=== PATIENT | female | born 1965 | race Caucasian/White ===

== ENCOUNTER 2021-01-20 20:20 | Emergency (ER) | payer OTHER ==
[2021-01-20 21:03] LABS: BASOPHIL 0.3 % (0-2); EOSINOPHIL 1.8 % (0-5); HCT 39.4 % (37.0-47.0); HGB 12.2 g/dl (12.5-16.0); LYMPHOCYTE 32.2 % (15-48); MCH 26.8 pg (25.0-31.0); MCV 86.6 fL (78.0-100.0); MONOCYTE 7.7 % (0-12); MPV 9.4 fL (6.0-9.5); NEUTROPHIL 57.7 % (41-80); NRBC 0; PLT 402 K/uL (150-400); RBC 4.55 M/uL (4.20-5.40); RDW 14.5 % (11.5-14.0); WBC 7.1 K/uL (4.0-10.5)
[2021-01-20 21:06] LABS: INR 0.93 (0.9-1.2); PROTHROMBIN TIME 11.9 SECONDS (11.8-13.4); PTT 31.8 SECONDS (24.4-34.7)
[2021-01-20 21:07] LABS: D-DIMER 0.98 ug/mLFEU (0.00-0.41)
[2021-01-20 21:24] LABS: BILIRUBIN - TOTAL 0.2 mg/dL (0.2-1.0); BUN/CREAT RATIO (CALC) 20.7 RATIO; CREATININE 0.82 mg/dL (0.51-0.95); GLOBULIN (CALCULATION) 3.3 g/dL; POTASSIUM 3.8 mmol/L (3.5-5.1); TOTAL PROTEIN 7.3 g/dL (6.4-8.2)
[2021-01-20 21:26] LABS: PRO-BNP 87 pg/mL (<125)
[2021-01-20] MEDS ORDERED: ATIVAN1 M1 PO (23:23)
== END 2021-01-20 23:55 | disposition home or self-care (01) ==
LOC: FER 20:20
PROVIDERS: Emergency Medicine
DX: F41.9 Anxiety disorder, unspecified (principal); R07.89 Other chest pain
CPT/HCPCS: 36415; 36600; 71045; 71275; 80053; 82803; 83735; 83880; 84443; 84484; 85025; 85379; 85610; 85730; 93005; J2060; Q9967

== ENCOUNTER → 2021-09-24 | Day surgery (SDC) | payer OTHER ==
[~2021-09-24] VITALS: Ht 154.9 cm; Wt 77.1 kg
[~2021-09-24] MED LIST: ATIVAN1 M1 PO; CARAFATE1 GM PO; COZAAR100 MG PO; HCTZ25 MG PO; OS-CAL500 MG PO; PRAVACHOL20 MG PO; PROBIOTIC1 EAC1 PO; PROTONIX 40MG T40 MG PO; PROZAC20 MG PO; STOOL SOFTENER100 MG PO; TYLENOL ARTHRI650 MG PO; VITAMIN D3125 MC1 PO; XYZAL5 MG PO
== END | disposition home or self-care (01) ==
LOC: FAS 06:03
DX: K29.60 Other gastritis without bleeding (principal); K31.7 Polyp of stomach and duodenum; K31.9 Disease of stomach and duodenum, unspecified; I10 Essential (primary) hypertension; E78.00 Pure hypercholesterolemia, unspecified; K21.9 Gastro-esophageal reflux disease without esophagitis; M19.90 Unspecified osteoarthritis, unspecified site; F41.9 Anxiety disorder, unspecified; F32.A Depression, unspecified; E66.9 Obesity, unspecified; Z68.32 Body mass index [BMI] 32.0-32.9, adult; Z79.899 Other long term (current) drug therapy; Z72.89 Other problems related to lifestyle; Z90.49 Acquired absence of other specified parts of digestive tract
CPT/HCPCS: J2250; J2704; J7120

== ENCOUNTER 2022-02-09 22:02 | Emergency (ER) | payer OTHER ==
[2022-02-09 23:51] LABS: BASOPHIL 0.5 % (0-2); HCT 36.3 % (37.0-47.0); HGB 11.5 g/dl (12.5-16.0); LYMPHOCYTE 40.1 % (15-48); MCH 26.1 pg (25.0-31.0); MCHC 31.7 g/dL (32.0-36.0); MCV 82.3 fL (78.0-100.0); MONOCYTE 10.2 % (0-12); MPV 9.8 fL (6.0-9.5); NRBC 0; PLT 316 K/uL (150-400); RBC 4.41 M/uL (4.20-5.40); RDW 14.4 % (11.5-14.0); WBC 5.8 K/uL (4.0-10.5)
[2022-02-10 00:14] LABS: ALBUMIN 4.2 g/dL (3.4-5.0); BILIRUBIN - TOTAL 0.4 mg/dL (0.2-1.0); CREATININE 0.81 mg/dL (0.51-0.95); GLOBULIN (CALCULATION) 3.5 g/dL; POTASSIUM 3.2 mmol/L (3.5-5.1); TOTAL PROTEIN 7.7 g/dL (6.4-8.2)
== END 2022-02-10 01:44 | disposition home or self-care (01) ==
LOC: FER 22:02
PROVIDERS: Physician Assistant
DX: K27.9 Peptic ulcer, site unspecified, unspecified as acute or chronic, without hemorrhage or perforation (principal); I10 Essential (primary) hypertension; E78.5 Hyperlipidemia, unspecified; K21.9 Gastro-esophageal reflux disease without esophagitis; Z79.899 Other long term (current) drug therapy; Z28.310 Unvaccinated for COVID-19
CPT/HCPCS: 36415; 71045; 80053; 83690; 84484; 85025; 93005; J7030; Q9967